=== PATIENT | female | born 1990 | race African-American/Black ===

== ENCOUNTER 2016-05-18 20:39 | Emergency (ER) | payer BC ==
[2016-05-18 21:03] VITALS: BP 121/66
== END 2016-05-18 21:18 | disposition left against medical advice (07) ==
LOC: ER 20:39
DX: Z53.21 Procedure and treatment not carried out due to patient leaving prior to being seen by health care provider (principal)

== ENCOUNTER 2018-11-22 22:58 | Emergency (ER) | payer SELFPAY ==
[2018-11-23 03:00] LABS: APPEARANCE,URINE SLIGHTLY-CLOUDY; BILIRUBIN,URINE NEGATIVE (NEGATIVE); COLOR,URINE YELLOW; GLUCOSE, URINE NEGATIVE (NEGATIVE); KETONES,URINE NEGATIVE (NEGATIVE); LEUKOCYTE ESTERASE,URINE SMALL (NEGATIVE); NITRITE,URINE NEGATIVE (NEGATIVE); PROTEIN,URINE NEGATIVE (NEGATIVE); URINE SPECIFIC GRAVITY 1.019
[2018-11-23] MEDS ORDERED: ONDANSETRON 4 MG TAB.RAPDIS PO ONE (04:33)
[2018-11-23 05:21] LABS: ABSOLUTE EOSINOPHILS # (AUTO) 0.1 10^3/uL (0.0-0.6); ABSOLUTE LYMPHOCYTES (AUTO) 2.3 10^3/uL (0.5-4.7); ABSOLUTE MONOCYTES (AUTO) 0.3 10^3/uL (0.1-1.4); BASOPHILS % (AUTO) 0.5 % (0-2); EOSINOPHILS % (AUTO) 2.8 % (0-6); HEMATOCRIT 36.8 % (36.0-47.0); HEMOGLOBIN 12.9 g/dL (12.0-15.5); MEAN CORPUSCULAR HEMOGLOBIN 30.8 pg (27.0-33.4); MEAN CORPUSCULAR HGB CONC 34.9 g/dL (32.0-36.0); MEAN CORPUSCULAR VOLUME 88 fl (80-97); MONOCYTES % (AUTO) 7.2 % (3-13); PLATELET COUNT 317 10^3/uL (150-450); RED BLOOD COUNT 4.18 10^6/uL (3.72-5.28); RED CELL DISTRIBUTION WIDTH 12.7 % (11.5-14.0); SEGMENTED NEUTROPHILS % (AUTO) 41.5 % (42-78); TOTAL CELLS COUNTED % (AUTO) 100 %; WHITE BLOOD COUNT 4.8 10^3/uL (4.0-10.5)
[2018-11-23 05:31] LABS: ANION GAP 9 (5-19); BLOOD UREA NITROGEN 11 mg/dL (7-20); CARBON DIOXIDE 28 mmol/L (22-30); CHLORIDE 105 mmol/L (98-107); GLUCOSE 89 mg/dL (75-110); POTASSIUM 4.3 mmol/L (3.6-5.0)
--- NOTE | 2018-11-23 06:10 | ER Document Report ---
ED General - General Chief Complaint: Nausea Stated Complaint: NAUSEA Time Seen by Provider: 11/23/18 04:33 TRAVEL OUTSIDE OF THE [place] IN LAST 30 DAYS: No - HPI Notes: This is a 28-year-old female who presents today with a complaint of nausea intermittently for the past week. Patient states that sometimes when she eats she just feels nauseated. She denies any vomiting. She denies any diarrhea or constipation. Her last menstrual period was about a month or so ago. Patient has not taken a test at home and she states there is a chance she might be . Patient states that her urine test are usually not reliable for her, and she needs a blood test. She denies any abdominal pain. She feels much better now. She describes her symptoms as mild. - Related Data Allergies/Adverse Reactions: No Known Allergies Allergy (Verified 12/31/14 10:49) Past Medical History - Social History Smoking Status: Never Smoker Chew tobacco use (# tins/day): No Frequency of alcohol use: Social Drug Abuse: None Family History: Reviewed & Not Pertinent Patient has suicidal ideation: No Patient has homicidal ideation: No Renal/ Medical History: Denies: Hx Peritoneal Dialysis - Immunizations Hx Diphtheria, Pertussis, Tetanus Vaccination: - unknown Review of Systems - Review of Systems Gastrointestinal: Nausea. denies: Abdominal pain, Diarrhea Genitourinary: denies: Flank pain, Hematuria Female Genitourinary: denies: Post menopausal, Heavy/abnormal periods, Irregular period, Vaginal discharge, Vaginal bleeding Musculoskeletal: denies: Joint swelling, Muscle pain Neurological/Psychological: denies: Headaches -: Yes All other systems reviewed and negative Physical Exam - Vital signs Vitals: Temp Pulse Resp BP Pulse Ox 98.4 F 73 20 117/78 100 11/22/18 23:16 11/22/18 23:16 11/22/18 23:16 11/22/18 23:16 11/22/18 23:16 - General General appearance: Appears well, Alert - HEENT Head: Normocephalic, Atraumatic Eyes: Normal Pupils: PERRL - Respiratory Respiratory status: No respiratory distress Chest status: Nontender Breath sounds: Normal Chest palpation: Normal - Cardiovascular Rhythm: Regular Heart sounds: Normal auscultation Murmur: No - Abdominal Inspection: Normal Distension: No distension Bowel sounds: Normal Tenderness: Nontender Organomegaly: No organomegaly - Neurological Neuro grossly intact: Yes Cognition: Normal Orientation: AAOx4 [place] Coma Scale Eye Opening: Spontaneous [place] Coma Scale Verbal: Oriented [place] Coma Scale Motor: Obeys Commands [place] Coma Scale Total: 15 Speech: Normal Motor strength normal: LUE, RUE, LLE, RLE Sensory: Normal - Skin Skin Temperature: Warm Skin Moisture: Dry Skin Color: Normal Course - Re-evaluation Re-evalutation: 11/23/18 06:09 Differential diagnosis includes versus viral syndrome versus gastritis versus dehydration. Will check basic labs. Will check test. 610 Patient reevaluated. Patient is doing well. Labs unremarkable. She is stable for discharge. - Vital Signs Vital signs: Temp Pulse Resp BP Pulse Ox 98.4 F 73 20 117/78 100 11/22/18 23:16 11/22/18 23:16 11/22/18 23:16 11/22/18 23:16 11/22/18 23:16 - Laboratory Result Diagrams: 11/23/18 04:55 11/23/18 04:55 Laboratory results interpreted by me: 11/23/18 11/23/18 02:25 04:55 Lymph % (Auto) 48.0 H Seg Neutrophils % 41.5 L Urine Urobilinogen 4.0 H Ur Leukocyte Esterase SMALL H Discharge - Discharge Clinical Impression: Nausea Condition: Good Disposition: HOME, SELF-CARE Instructions: Nausea or Vomiting, Nonspecific ([facility]) Additional Instructions: Follow-up with your doctor Prescriptions: Ondansetron [Zofran Odt 4 mg Tablet] 1 - 2 tab PO Q4H PRN #15 tab.rapdis PRN Reason: For Nausea/Vomiting
[2018-11-23 06:27] VITALS: BP 111/73
== END 2018-11-23 06:24 | disposition home or self-care (01) ==
LOC: ER 22:58
DX: R11.0 Nausea (principal); Z32.00 Encounter for pregnancy test, result unknown
CPT/HCPCS: 36415; 84702; 85025; 81025; 80048; 81001; S0119; 99283

== ENCOUNTER 2019-03-21 09:37 | Emergency (ER) | payer SELFPAY ==
[2019-03-21] MEDS ORDERED: ASPIRIN 81 MG TABLET, CHEWABLE PO ONE (10:13)
--- NOTE | 2019-03-21 10:16 | ER Document Report ---
ED Medical Screen (RME) - General Chief Complaint: General Weakness Stated Complaint: WEAKNESS Time Seen by Provider: 03/21/19 10:09 TRAVEL OUTSIDE OF THE [place] IN LAST 30 DAYS: No - HPI Notes: 03/21/19 10:14 28-year-old female presents emergency room for complaints of shortness of breath and chest tightness that started last night around 10:00. Patient states she is persistently felt short of breath and fatigue since around 9:00 last night but states the substernal chest tightness started at 10:00, reports pain comes and goes. Denies cardiac history, denies parents of having a cardiac history. D enies history of asthma, being on control, no recent surgery, no recent periods of immobilization, no clotting disorders. Patient denies any trauma. Non-smoker. Denies any nausea vomiting diarrhea, abdominal pain, fevers or chills. I have greeted and performed a rapid initial assessment of this patient. A comprehensive ED assessment and evaluation of the patient, analysis of test results and completion of the medical decision making process will be conducted by additional ED providers. PHYSICAL EXAMINATION: GENERAL: Well-appearing, well-nourished and in no acute distress. HEAD: Atraumatic, normocephalic. EYES: Pupils equal round extraocular movements intact, conjunctiva are normal. NECK: Normal range of motion CV: s1, s2 regular LUNGS: No respiratory distress Musculoskeletal: Normal range of motion NEUROLOGICAL: Normal speech, normal gait. SKIN: Warm, Dry, normal turgor, no rashes or lesions noted. - Related Data Allergies/Adverse Reactions: No Known Allergies Allergy (Verified 12/31/14 10:49) Past Medical History - Social History Frequency of alcohol use: Occasional Drug Abuse: None Renal/ Medical History: Denies: Hx Peritoneal Dialysis - Immunizations Hx Diphtheria, Pertussis, Tetanus Vaccination: - unknown Physical Exam - Vital signs Vitals: Temp Resp BP 97.6 F 22 H 128/74 H 03/21/19 09:42 03/21/19 09:42 03/21/19 09:42 Course - Vital Signs Vital signs: Temp Pulse Resp BP Pulse Ox 97.6 F 22 H 128/74 H 03/21/19 09:42 03/21/19 09:42 03/21/19 09:42
[2019-03-21 10:52] LABS: ABSOLUTE EOSINOPHILS # (AUTO) 0.1 10^3/uL (0.0-0.6); ABSOLUTE LYMPHOCYTES (AUTO) 1.5 10^3/uL (0.5-4.7); ABSOLUTE MONOCYTES (AUTO) 0.4 10^3/uL (0.1-1.4); ABSOLUTE NEUT (AUTO) 3.8 10^3/uL (1.7-8.2); BASOPHILS % (AUTO) 0.4 % (0-2); EOSINOPHILS % (AUTO) 1.6 % (0-6); HEMATOCRIT 37.9 % (36.0-47.0); HEMOGLOBIN 13.6 g/dL (12.0-15.5); MEAN CORPUSCULAR HEMOGLOBIN 31.5 pg (27.0-33.4); MEAN CORPUSCULAR HGB CONC 35.8 g/dL (32.0-36.0); MEAN CORPUSCULAR VOLUME 88 fl (80-97); MONOCYTES % (AUTO) 7.1 % (3-13); PLATELET COUNT 296 10^3/uL (150-450); RED BLOOD COUNT 4.31 10^6/uL (3.72-5.28); RED CELL DISTRIBUTION WIDTH 12.3 % (11.5-14.0); SEGMENTED NEUTROPHILS % (AUTO) 64.9 % (42-78); TOTAL CELLS COUNTED % (AUTO) 100 %; WHITE BLOOD COUNT 5.9 10^3/uL (4.0-10.5)
[2019-03-21 10:55] LABS: APPEARANCE,URINE CLEAR; BILIRUBIN,URINE NEGATIVE (NEGATIVE); COLOR,URINE YELLOW; GLUCOSE, URINE NEGATIVE (NEGATIVE); KETONES,URINE TRACE mg/dL (NEGATIVE); LEUKOCYTE ESTERASE,URINE TRACE (NEGATIVE); NITRITE,URINE NEGATIVE (NEGATIVE); PROTEIN,URINE NEGATIVE (NEGATIVE); URINE SPECIFIC GRAVITY 1.006; UROBILINOGEN,URINE NEGATIVE mg/dL (<2.0)
[2019-03-21 11:14] LABS: ALBUMIN 4.9 g/dL (3.5-5.0); ALKALINE PHOSPHATASE 52 U/L (38-126); ANION GAP 11 (5-19); ASPARTATE AMINO TRANSFERASE 19 U/L (14-36); BILIRUBIN,DIRECT 0.1 mg/dL (0.0-0.4); BILIRUBIN,TOTAL 1.7 mg/dL (0.2-1.3); BLOOD UREA NITROGEN 7 mg/dL (7-20); CALCIUM 10.2 mg/dL (8.4-10.2); CARBON DIOXIDE 26 mmol/L (22-30); CHLORIDE 104 mmol/L (98-107); GLUCOSE 85 mg/dL (75-110); POTASSIUM 3.9 mmol/L (3.6-5.0); TOTAL PROTEIN 8.6 g/dL (6.3-8.2)
--- NOTE | 2019-03-21 11:41 | RADIOLOGY REPORT (SQ) ---
EXAM DESCRIPTION: CHEST 2 VIEWS COMPLETED DATE/TIME: 03/21/2019 11:27 am REASON FOR STUDY: sob, chest pain COMPARISON: None. TECHNIQUE: Frontal and lateral radiographic views of the chest acquired. NUMBER OF VIEWS: Two view. LIMITATIONS: None. FINDINGS: LUNGS AND PLEURA: No opacities, masses or pneumothorax. No pleural effusion. MEDIASTINUM AND HILAR STRUCTURES: No masses or contour abnormalities. HEART AND VASCULAR STRUCTURES: Heart normal size. No evidence for failure. BONES: No acute findings. HARDWARE: None in the chest. OTHER: No other significant finding. IMPRESSION: NO SIGNIFICANT RADIOGRAPHIC FINDING IN THE CHEST. TECHNICAL DOCUMENTATION: JOB ID: [id number] [employer]- All Rights Reserved Reading location - IP/workstation name: [email or web address]
[2019-03-21] MEDS ORDERED: NORMAL SALINE 1000 ML 1,000 ML IV ONE ×2 (11:42→13:39)
--- NOTE | 2019-03-21 13:41 | ER Document Report ---
ED General - General Chief Complaint: General Weakness Stated Complaint: WEAKNESS Time Seen by Provider: 03/21/19 10:09 Primary Care Provider: [facility] [Provider Group] - Follow up in 3-5 days MATIAS KEVIN MD [COMMUNITY BASED STAFF] - Follow up in 3-5 days KENN ALBERTO MD [ACTIVE STAFF] - Follow up in 1 week Notes: 28-year-old female presents with chest tightness, dyspnea, and fatigue that st arted last night. Patient states it started off with fatigue and shortness of breath and then an hour later she started having central chest tightness. States worse with movement better with rest. Patient denies any recent long distance travel, recent hospitalizations, recent surgeries, control use, personal history of cancer, or family history of PE or DVT. TRAVEL OUTSIDE OF THE [place] IN LAST 30 DAYS: No - Related Data Allergies/Adverse Reactions: No Known Allergies Allergy (Verified 12/31/14 10:49) Past Medical History - Social History Smoking Status: Never Smoker Frequency of alcohol use: Occasional Drug Abuse: None Family History: Reviewed & Not Pertinent Patient has suicidal ideation: No Patient has homicidal ideation: No Renal/ Medical History: Denies: Hx Peritoneal Dialysis - Immunizations Hx Diphtheria, Pertussis, Tetanus Vaccination: - unknown Review of Systems - Review of Systems Notes: Constitutional: Negative for fever. HENT: Negative for sore throat. Eyes: Negative for visual changes. Cardiovascular: Positive for chest pain. Respiratory: Positive for shortness of breath. Gastrointestinal: Negative for abdominal pain, vomiting or diarrhea. Genitourinary: Negative for dysuria. Musculoskeletal: Negative for back pain. Skin: Negative for rash. Neurological: Negative for headaches, weakness or numbness. 10 point ROS negative except as marked above and in HPI. Physical Exam - Vital signs Vitals: Temp Resp BP 97.6 F 22 H 128/74 H 03/21/19 09:42 03/21/19 09:42 03/21/19 09:42 - Notes Notes: GENERAL: Well-appearing, well-nourished and in no acute distress. HEAD: Atraumatic, normocephalic. EYES: Extraocular movements intact, sclera anicteric, conjunctiva are normal. NECK: Normal range of motion, supple without lymphadenopathy or JVD. LUNGS: Breath sounds clear to auscultation bilaterally and equal. No wheezes rales or rhonchi. HEART: Regular rate and rhythm without murmurs, rubs or gallops. EXTREMITIES: Normal range of motion, no pitting or edema. No clubbing or cyanosis. NEUROLOGICAL: Cranial nerves II through XII grossly intact. Normal speech, normal gait. PSYCH: Normal mood, normal affect. SKIN: Warm, Dry, normal turgor, no rashes or lesions noted. Course - Re-evaluation Re-evalutation: 03/21/19 28-year-old female presents with chest tightness is, dyspnea, and fatigue since last night that is worse with movement. EKG shows mild tachycardia at a rate of 109. Lab work is otherwise unremarkable. D-dimer is negative. Initial troponin is negative. Chest x-ray is negative. Second troponin is pending. Low clinical suspicion for ACS given clinical history, exam, EKG without ST elevations or depressions, and negative initial troponin. HEART score less than or equal to 3. PE also seems unlikely given clinical history, absence of tachycardia or dyspnea. Patient is PERC criteria negative. CXR without evidence of pneumothorax or pneumonia. No widened mediastinum. Aortic dissection also seems unlikely given history, symmetric pulses, CXR, and vitals. HEART Score: 0 Chest pain in a patient without evidence of cardiac or other serious etiology on workup today. I discussed with patient that, based on their age, risk factors and emergency department testing today, the likelihood that their symptoms are related to a heart attack is very low (estimated risk of heart attack or over the next 30 days of less than 1%). The patient demonstrates decision making capacity and has verbalized an understanding of these risks to me. Based on this, the patient has chosen to follow-up as an outpatient. Usual chest pain return precautions reviewed. The patient states understanding and agreement with this plan. 03/21/19 14:26 Pt is refusing 2nd troponin. - Vital Signs Vital signs: Temp Pulse Resp BP Pulse Ox 97.6 F 21 H 117/85 98 03/21/19 09:42 03/21/19 14:51 03/21/19 14:52 03/21/19 14:52 - Laboratory Result Diagrams: 03/21/19 10:20 03/21/19 10:20 Laboratory results interpreted by me: 03/21/19 03/21/19 10:20 10:25 Total Bilirubin 1.7 H Total Protein 8.6 H Urine Ketones TRACE H Urine Blood LARGE H Ur Leukocyte Esterase TRACE H Discharge - Discharge Clinical Impression: Chest tightness Dyspnea Qualifiers: Dyspnea type: shortness of breath Qualified Code(s): R06.02 - Shortness of breath Fatigue Qualifiers: Fatigue type: unspecified Qualified Code(s): R53.83 - Other fatigue Condition: Stable Disposition: HOME, SELF-CARE Instructions: Chest Pain of Unclear Cause ([facility]) Additional Instructions: Your work-up today was reassuring. Please follow-up with your primary care doctor to 1 of the clinics listed in 3 to 5 days. Please follow-up with founder and ceo listed in 1 week. Return to ER immediately if you start having any worsening symptoms, including chest pain, worsening shortness of breath, fever, coughing up blood, abdominal pain, nausea/vomiting, diarrhea, or any other symptoms that are concerning to you. Forms: Return to Work Referrals: MATIAS KEVIN MD [COMMUNITY BASED STAFF] - Follow up in 3-[address] [facility] [Provider Group] - Follow up in 3-5 days KENN ALBERTO MD [ACTIVE STAFF] - Follow up in 1 week
[2019-03-21 14:57] VITALS: BP 117/85
--- NOTE | 2019-03-21 15:47 | EKG REPORT ---
SEVERITY:- ABNORMAL ECG - MULTIFOCAL ATROAL TACHYCARDIA WITH IRREGULAR RATE [id number] PROBABLE LEFT ATRIAL ABNORMALITY : Confirmed by: Jade Palmer MD 21-Mar-2019 15:45:54
== END 2019-03-21 15:00 | disposition home or self-care (01) ==
LOC: ER 09:37
DX: R07.89 Other chest pain (principal); R53.83 Other fatigue; R06.02 Shortness of breath
CPT/HCPCS: 93005; 99285; 96360; 96361; 36415; 85025; 81025; 80053; 81001; 84484; 85379; 71046; 93010; J7030

== ENCOUNTER 2019-03-22 23:07 | Emergency (ER) | payer SELFPAY ==
--- NOTE | 2019-03-22 23:55 | ER Document Report ---
ED Medical Screen (RME) - General Chief Complaint: Breathing Difficulty Stated Complaint: DIFFICULTY BREATHING,SHAKING Time Seen by Provider: 03/22/19 23:47 Mode of Arrival: Ambulatory Information source: Patient Notes: Otherwise healthy 28-year-old female presenting to the emergency department chief complaint of shortness of breath and chest pressure. Patient reports symptoms have been intermittent over the last few days. She states she was seen here yesterday and had a normal work-up. She has declined a EKG, chest x-ray or blood work. She states that she just wants to know what is going on with her breathing. Her lung sounds are clear and equal bilaterally, she is speaking in full and complete sentences. She is requesting to see a physician prior to having any work-up done. I have greeted and performed a rapid initial assessment of this patient. A comprehensive ED assessment and evaluation of the patient, analysis of test results and completion of the medical decision making process will be conducted by additional ED providers. I have specifically instructed the patient or family members with the patient to immediately return to any nursing staff should anything change in the patient's condition or with their chief complaint. TRAVEL OUTSIDE OF THE [place] IN LAST 30 DAYS: No - Related Data Allergies/Adverse Reactions: No Known Allergies Allergy (Verified 12/31/14 10:49) Past Medical History - Social History Chew tobacco use (# tins/day): No Frequency of alcohol use: None Drug Abuse: None Renal/ Medical History: Denies: Hx Peritoneal Dialysis - Immunizations Hx Diphtheria, Pertussis, Tetanus Vaccination: - unknown Physical Exam - Vital signs Vitals: Temp Pulse Resp BP Pulse Ox 98.2 F 92 16 115/76 97 03/22/19 23:15 03/22/19 23:15 03/22/19 23:15 03/22/19 23:15 03/22/19 23:15 Course - Vital Signs Vital signs: Temp Pulse Resp BP Pulse Ox 98.2 F 92 16 115/76 97 03/22/19 23:15 03/22/19 23:15 03/22/19 23:15 03/22/19 23:15 03/22/19 23:15
--- NOTE | 2019-03-23 00:56 | ER Document Report ---
ED General - General Chief Complaint: Chest Pain Stated Complaint: DIFFICULTY BREATHING,SHAKING Time Seen by Provider: 03/22/19 23:47 Mode of Arrival: Ambulatory Information source: Patient Notes: 28-year-old female presented to ED for complaint of chest pain and shortness of breath. She states it feels like someone is suffocating her. She states she was just seen yesterday and work-up was completed and they did not find anything. She states she is still feeling the same symptoms. She has refused any work-up in the triage area. I have reviewed with her the risk of going home with you feeling like someone is sitting on your chest and not having any work- up done. She states she is not going to have it done she will follow-up with her primary care doctor she thinks she might be just having anxiety. I have told her the risk of going home and she still refuses any EKG chest x-ray or blood work. TRAVEL OUTSIDE OF THE [place] IN LAST 30 DAYS: No - HPI Onset: Yesterday Onset/Duration: Intermittent Quality of pain: Pressure Severity: None - She states the pressure is intermittently she is not having any at this moment Pain Level: Denies Associated symptoms: Chest pain, Shortness of breath Exacerbated by: Denies Relieved by: Denies Similar symptoms previously: Yes Recently seen / treated by doctor: Yes - Related Data Allergies/Adverse Reactions: No Known Allergies Allergy (Verified 12/31/14 10:49) Past Medical History - General Information source: Patient - Social History Smoking Status: Never Smoker Chew tobacco use (# tins/day): No Frequency of alcohol use: None Drug Abuse: None Family History: Reviewed & Not Pertinent Patient has suicidal ideation: No Patient has homicidal ideation: No - Past Medical History Cardiac Medical History: Reports: None Pulmonary Medical History: Reports: None EENT Medical History: Reports: None Neurological Medical History: Reports: None Endocrine Medical History: Reports: None Renal/ Medical History: Reports: None Malignancy Medical History: Reports: None GI Medical History: Reports: None Musculoskeletal Medical History: Reports None Skin Medical History: Reports None Psychiatric Medical History: Reports: None Traumatic Medical History: Reports: None Infectious Medical History: Reports: None Surgical Hx: Negative Past Surgical History: Reports: None - Immunizations Immunizations up to date: Yes Hx Diphtheria, Pertussis, Tetanus Vaccination: Yes - unknown Review of Systems - Review of Systems Constitutional: No symptoms reported EENT: No symptoms reported Cardiovascular: Chest pain - Feels like someone is sitting on her chest and she is suffocating. Denies pain at this time Respiratory: Short of breath Gastrointestinal: No symptoms reported Genitourinary: No symptoms reported Female Genitourinary: No symptoms reported Musculoskeletal: No symptoms reported Skin: No symptoms reported Hematologic/Lymphatic: No symptoms reported Neurological/Psychological: No symptoms reported -: Yes All other systems reviewed and negative Physical Exam - Vital signs Vitals: Temp Pulse Resp BP Pulse Ox 98.2 F 92 16 115/76 97 03/22/19 23:15 03/22/19 23:15 03/22/19 23:15 03/22/19 23:15 03/22/19 23:15 Interpretation: Normal - General General appearance: Appears well, Alert - HEENT Head: Normocephalic, Atraumatic Eyes: Normal Pupils: PERRL Ears: Normal External canal: Normal Tympanic membrane: Normal Sinus: Normal Nasal: Normal Mouth/Lips: Normal Mucous membranes: Normal Pharynx: Normal Neck: Normal - Respiratory Respiratory status: No respiratory distress Chest status: Nontender. No: Tender, Pain on movement, Pain with cough, Pain with deep breathing Breath sounds: Normal. No: Rales, Rhonchi, Stridor, Wheezing Chest palpation: Normal - Cardiovascular Rhythm: Regular Heart sounds: Normal auscultation Murmur: No - Abdominal Inspection: Normal Distension: No distension Bowel sounds: Normal Tenderness: Nontender Organomegaly: No organomegaly - Back Back: Normal, Nontender - Extremities General upper extremity: Normal inspection, Nontender, Normal color, Normal ROM, Normal temperature General lower extremity: Normal inspection, Nontender, Normal color, Normal ROM, Normal temperature, Normal weight bearing. No: Bhumi's sign - Neurological Neuro grossly intact: Yes Cognition: Normal Orientation: AAOx4 [place] Coma Scale Eye Opening: Spontaneous [place] Coma Scale Verbal: Oriented [place] Coma Scale Motor: Obeys Commands [place] Coma Scale Total: 15 Speech: Normal Motor strength normal: LUE, RUE, LLE, RLE Sensory: Normal - Psychological Associated symptoms: Normal affect, Normal mood - Skin Skin Temperature: Warm Skin Moisture: Dry Skin Color: Normal Course - Vital Signs Vital signs: Temp Pulse Resp BP Pulse Ox 98.2 F 92 21 H 105/75 100 03/22/19 23:15 03/22/19 23:15 03/23/19 00:02 03/23/19 00:02 03/23/19 00:02 Discharge - Discharge Clinical Impression: Chest tightness Dyspnea Qualifiers: Dyspnea type: shortness of breath Qualified Code(s): R06.02 - Shortness of breath Disposition: AGAINST MEDICAL ADVICE Additional Instructions: You came into the emergency room for chest pain. You have refused all labs x-ray and EKGs You will be discharged AGAINST MEDICAL ADVICE. You have been informed when you state you have chest pressure that feels like someone sitting on your chest with shortness of breath that this could be cardiac or respiratory problems and you have elected not to have any testing done. You have been informed that this could be life-threatening but you do not want any testing was done at this time. I have informed you that you could go home and have a heart attack and and you still state you do not want any testing done at this time. FOLLOW-UP CARE: If you have been referred to a physician for follow-up care, call the physicians office for an appointment as you were instructed or within the next two days. If you experience worsening or a significant change in your symptoms, notify the physician immediately or return to the Emergency Department at any time for re-evaluation.
[2019-03-23 01:14] VITALS: BP 116/82
== END 2019-03-23 01:11 | disposition left against medical advice (07) ==
LOC: ER 23:07
DX: R07.9 Chest pain, unspecified (principal); R06.02 Shortness of breath
CPT/HCPCS: 99283